=== PATIENT | female | born 1990 | race Caucasian/White ===

== ENCOUNTER 2018-04-22 17:54 | Outpatient (CLI) | payer OTHER ==
[~2018-04-22] VITALS: Ht 152.4 cm; Wt 81.0 kg
[2018-04-22 18:12] VITALS: Ht 152.4 cm; Wt 81.0 kg
[2018-04-22 18:14] VITALS: BP 125/74; PULSE 99; RESP 20
[2018-04-22] MEDS ORDERED: PREN1TAB13 PO (18:17)
--- NOTE | 2018-04-22 20:28 | PN ---
Triage Information Date/Time April 22, 2018 Reason for visit: Abd/pelvic pain (after a fall) Weeks of Gestation 38w 2d /Para 4/2 Diabetes: none Hypertention: none Additional information Pt slipped and did the splits in the bathroom last night at 0300, and is having some groin pain and lower abdominal pain today. Did not hit her belly and did not actually hit the floor. No bleeding or leaking or UC's. PMHx: none. PSHx: none. NKDA Objective Vital Signs Date Temp Pulse Resp B/P (MAP) Pulse Ox O2 O2 Flow FiO2 Time Delivery Rate 04/22/18 98.1 99 20 125/74 Room Air 18:14 (91) Heart Rate: 130's Heart Rate Comments Accels to 150 BPM. No decels. Contractions: None Exam Thick/1/posterior, per the RN Results/Medications Imaging Results BPP 8/8. TATA 9.7 cm. EFW 3117 grams. Disposition: Discharge Assessment/Plan A: IUP at 38w 2d. Lower abdominal pain. False labor. P: D/C home. F/u with her doctor on 04/29, as scheduled. Labor precautions reviewed. JANINE BOBO MD Apr 22, 2018 20:28
== END 2018-04-22 20:27 | disposition home or self-care (01) ==
LOC: L-D 17:54 → OBT 17:54
PROVIDERS: ATTEND Obstetrics & Gynecology
DX: O26.893 Other specified pregnancy related conditions, third trimester (principal); Z3A.38 38 weeks gestation of pregnancy; R10.2 Pelvic and perineal pain
CPT/HCPCS: 76815; 76818; Z7500; G0463

== ENCOUNTER 2018-04-26 10:42 | Inpatient (IN) | payer OTHER ==
[~2018-04-26 10:42] MED LIST: PREN1TAB13 PO
[2018-04-26] MEDS ORDERED: BUTORPHANOL 2 MG INJ IV PRN (12:00)
[2018-04-26] MEDS ORDERED: OXYTOCIN 30 UNITS/LR 500 ML IV PRN ×2 (12:00→21:30)
[2018-04-26] MEDS ORDERED: OXYTOCIN 30 UNITS/LR 500 ML IV SCH ×4 (12:00→21:03)
[2018-04-26] MEDS ORDERED: CARBOPROST 250 MCG INJ IM PRN ×2 (12:00→21:30)
[2018-04-26] MEDS ORDERED: LIDOCAINE 1% (MPF) 30 ML INJ INJ PRN (12:00)
[2018-04-26] MEDS ORDERED: BUTORPHANOL 1 MG INJ IV PRN (12:00)
[2018-04-26] MEDS ORDERED: MISOPROSTOL 200 MCG TAB PR PRN ×2 (12:00→21:30)
[2018-04-26] MEDS ORDERED: METHYLERGONOVINE 0.2 MG INJ IM PRN ×2 (12:00→21:30)
--- NOTE | 2018-04-26 13:36 | PREAC ---
Date/Time of Note Date/Time of Note DATE: 04/26/18 TIME: 13:34 Anesthesia Eval and Record Evaluation Time Pre-Procedure Interview DATE: 04/26/18 TIME: 13:34 Age 28 Sex female NPO: 8 hrs Preoperative diagnosis IUP Planned procedure L&D Epidural Past Medical History Past Medical History: Includes Surgery & Anesthesia Issues No known issue Meds Anticoagulation: No Beta Natalie within 24 hr: No Reason Beta Natalie not given: Pt. not on B-Natalie Reported Medications Pnv95/Ferrous Fumarate/FA ( Vitamins Tablet) 1 Each Tablet, 1 EACH PO, TAB 04/22/18 Current Medications Lactated Ringer's 1,000 ml @ 125 mls/hr Q8H IV ; Start 04/26/18 at 11:42 Butorphanol Tartrate (Stadol) 1 mg Q2H PRN IV .PAIN; Start 04/26/18 at 12:00 Butorphanol Tartrate (Stadol) 2 mg Q2H PRN IV .PAIN; Start 04/26/18 at 12:00 Lidocaine (Xylocaine 1% (Mpf)) 30 ml ONCE PRN INJ .EPISIOTOMY; Start 04/26/18 at 12:00 Oxytocin/Lactated Ringer's 500 ml @ 500 mls/hr ONCE POST IV ; Start 04/26/18 at 12:00 Oxytocin/Lactated Ringer's 500 ml @ 125 mls/hr POST IV ; Start 04/26/18 at 12:00 Oxytocin/Lactated Ringer's 500 ml @ 0 mls/hr ONCE PRN IV .VAGINAL BLEEDING; Start 04/26/18 at 12:00 Methylergonovine Maleate (Methergine) 0.2 mg ONCE PRN IM .VAGINAL BLEEDING; Start 04/26/18 at 12:00 Carboprost Tromethamine (Hemabate) 250 mcg ONCE PRN IM .VAGINAL BLEEDING; Start 04/26/18 at 12:00 Misoprostol (Cytotec) 1,000 mcg ONCE PRN VA .VAGINAL BLEEDING; Start 04/26/18 at 12:00 Meds reviewed: Yes Allergies Coded Allergies: No Known Allergy (Unverified , 04/22/18) Allergies Reviewed: Yes Labs/Studies Labs Reviewed: Reviewed by anesthesiologist test: Positive Pre-procedure Exam Last vitals BP:112/56, P:78, Spo2:100%, T:98,8 Airway: Adequate mouth opening, Adequate thyromental dist Mallampati: Mallampati II Teeth: Normal Lung: Normal Heart: Normal ASA Physical Status ASA physical status: 2 Emergency: None Planned Anesthetic Neuraxial: Epidural Planned Pain Management Epidural Pre-operative Attestations Prior to commencing anesthesia and surgery, the patient was re-evaluated, there was verification of: *The patient's identity *The results of appropriate recent lab work and preoperative vital signs *The above evaluation not changing prior to induction *Anesthetic plan, risk benefits, alternative and complications discussed with patient/family; questions answered; patient/family understands, accepts and wishes to proceed. EMIR PARIKH MD Apr 26, 2018 13:36
[2018-04-26] MEDS: LACTATED RINGER'S 1,000 ML IV SCH ×3 (13:48→20:37)
[2018-04-26] MEDS ORDERED: ONDANSETRON 4 MG INJ IV PRN ×2 (14:00→21:30)
[2018-04-26] MEDS ORDERED: FENTAnyl 2MCG/ML-ROPIV 0.2% 100 ML BAG EPI SCH ×2 (14:00)
[2018-04-26] MEDS ORDERED: DIPHENHYDRAMINE 50 MG INJ IV PRN (14:00)
[2018-04-26] MEDS ORDERED: NALOXONE (0.4 MG/ML) INJ IV PRN (14:00)
[2018-04-26] MEDS ORDERED: ROPIVACAINE 0.2% 100 ML ONE (14:05)
--- NOTE | 2018-04-26 21:02 | OPPN ---
Date/Time of Note Date/Time of Note DATE: 04/26/18 TIME: 21:01 Operative Report Planned Procedure Procedure date Apr 26, 2018 Procedure(s) Performed by see signature line Management Advisor: A 2nd Management Advisor none Pre-procedure diagnosis 39 WEEKS IUP IN LABOR [id number] Anesthesia Type: [id number] epidural Post-Procedure Post-procedure diagnosis 39 WEEKS IUP Findings Live Baby GIRL, Apgars 9and 9, weight6;BS 14 OZ Estimated Blood Loss: 200 - 300 mls Specimen(s) none Grafts/Implant(s) none Complication(s) none RUBÉN GONCALVES MD Apr 26, 2018 21:01
[2018-04-26] MEDS: LACTATED RINGER'S 1,000 ML IV* SCH (21:03)
[2018-04-26] MEDS ORDERED: HYDROCODONE/APAP (5/325) TAB PO PRN ×2 (21:30)
[2018-04-26] MEDS ORDERED: METHYLERGONOVINE 0.2 MG TAB PO PRN (21:30)
[2018-04-26] MEDS ORDERED: MAGNESIUM HYDROXIDE 30ML CUP PO PRN (21:30)
[2018-04-26] MEDS ORDERED: WITCH HAZEL/GLYCERIN PAD PR PRN (21:30)
[2018-04-26] MEDS ORDERED: DIPHENHYDRAMINE 25 MG CAP PO PRN (21:30)
[2018-04-26] MEDS ORDERED: LANOLIN HPA 1 PKT TOP PRN (21:30)
[2018-04-26] MEDS ORDERED: ZOLPIDEM 5 MG TAB PO PRN (21:30)
[2018-04-26] MEDS ORDERED: NA PHOSPHATE/BIPHOS 133 ML ENEMA PR PRN (21:30)
[2018-04-26] MEDS ORDERED: BENZOCAINE 20% 56 ML SPRAY TOP PRN (21:30)
[2018-04-26 22:00] VITALS: BP 125/77; RESP 19
[2018-04-26] MEDS: IBUPROFEN 600 MG TAB PO PRN (22:53)
[2018-04-27 04:00] VITALS: BP 102/47; RESP 17
[2018-04-27] MEDS: LACTATED RINGER'S 1,000 ML IV* SCH (05:03)
[2018-04-27 07:45] VITALS: BP 109/72; PULSE 97; RESP 18
[2018-04-27] MEDS: IBUPROFEN 600 MG TAB PO PRN ×2 (09:22→19:28)
[2018-04-27] MEDS: SENNA/DOCUSATE NA (8.6MG/50MG) TAB PO SCH ×2 (09:22→23:06)
[2018-04-27] MEDS ORDERED: CEPASTAT LOZENGE MT PRN (13:00)
[2018-04-27 16:00] VITALS: BP 104/66; PULSE 88; RESP 18
[2018-04-27 20:00] VITALS: BP 123/83; PULSE 111; RESP 20
--- NOTE | 2018-04-27 21:20 | PN ---
Date/Time of Note Date/Time of Note DATE: 04/27/18 TIME: 21:18 Assessment/Plan VTE Prophylaxis Risk score (from Ns)>0 risk: 1 SCD applied (from Ns): No SCD contraindicated: low risk/ambulating Pharmacological prophylaxis: NA/contraindicated Pharm contraindication: low risk/ambulating Lines/Catheters IV C[facility]ter Type [facility]from [facility] Peripheral IV Assessment/Plan Assessment/Plan POST DAY 1 HOME TOMORROW RETURN TO CLINIC IN 2 WEEKS CONTINUE WITH VITAMINS OD AND FERROUS SULFATE PO TID DIET ADVISED COUNSELED INSTRUCTED CALL OFFICE IF THERE IS ANY PROBLEMS OR CONCERN Result Diagram: 04/27/1825 Results 24hrs Laboratory Tests Test 04/27/18 06:41 04/27/18 07:25 Lab Scanned Report REFERENCE LAB White Blood Count 12.3 #H Red Blood Count 4.13 L Hemoglobin 11.8 L Hematocrit 36.0 L Mean Corpuscular Volume 87.2 Mean Corpuscular Hemoglobin 28.6 L Mean Corpuscular Hemoglobin Concent 32.8 Red Cell Distribution Width 14.4 Platelet Count 176 Mean Platelet Volume 10.7 H Immature Granulocytes % 0.600 H Neutrophils % 64.1 Lymphocytes % 26.8 Monocytes % 6.3 Eosinophils % 2.0 Basophils % 0.2 Nucleated Red Blood Cells % 0.0 Immature Granulocytes # 0.080 H Neutrophils # 7.9 H Lymphocytes # 3.3 H Monocytes # 0.8 Eosinophils # 0.3 Basophils # 0.0 Nucleated Red Blood Cells # 0.0 Subjective 24 Hr Interval Summary Free Text/Dictation FEELS GOOD, GOOD URINE OUTPUT, GOOD BOWEL MOVEMENT Exam/Review of Systems Exam Vitals Vital Signs Date Temp Pulse Resp B/P (MAP) Pulse Ox O2 O2 Flow FiO2 Time Delivery Rate 04/27/18 98.6 88 18 104/66 Room Air 16:00 (79) Intake and Output 04/26/18 04/26/18 04/27/18 1515:00 23:00 07:00 IntakeIntake Total 1000 ml 1500 ml OutputOutput Total 1597 ml 400 ml BalanceBalance 1000 ml -97 ml -400 ml Exam VITAL SIGNS STABLE: YES AFEBRILE: YES BREAST NOT ENGORGED, NON-TENDER, NO APPRECIABLE MASS: YES LUNGS CLEAR, NO RALES, WHEEZES, RHONCHI: YES SINUS RHYTHM WITHOUT MURMUR: YES ABDOMEN: NON-TENDER FUNDUS: BELOW UMBILICUS BOWEL SOUNDS: PRESENT UTERUS: FIRM INTACT PERINEUM: YES LOCHIA: LIGHT DEEP TENDON REFLEXES: 0 EXTREMITIES: NO CALF TENDERNESS EDEMA SCALE: NONE Results Results 24hrs Laboratory Tests Test 04/27/18 06:41 04/27/18 07:25 Lab Scanned Report REFERENCE LAB White Blood Count 12.3 #H Red Blood Count 4.13 L Hemoglobin 11.8 L Hematocrit 36.0 L Mean Corpuscular Volume 87.2 Mean Corpuscular Hemoglobin 28.6 L Mean Corpuscular Hemoglobin Concent 32.8 Red Cell Distribution Width 14.4 Platelet Count 176 Mean Platelet Volume 10.7 H Immature Granulocytes % 0.600 H Neutrophils % 64.1 Lymphocytes % 26.8 Monocytes % 6.3 Eosinophils % 2.0 Basophils % 0.2 Nucleated Red Blood Cells % 0.0 Immature Granulocytes # 0.080 H Neutrophils # 7.9 H Lymphocytes # 3.3 H Monocytes # 0.8 Eosinophils # 0.3 Basophils # 0.0 Nucleated Red Blood Cells # 0.0 Medications Medication Current Medications Butorphanol Tartrate (Stadol) 1 mg Q2H PRN IV .PAIN; Start 04/26/18 at 12:00 Butorphanol Tartrate (Stadol) 2 mg Q2H PRN IV .PAIN; Start 04/26/18 at 12:00 Lidocaine (Xylocaine 1% (Mpf)) 30 ml ONCE PRN INJ .EPISIOTOMY; Start 04/26/18 at 12:00 Oxytocin/Lactated Ringer's 500 ml @ 500 mls/hr ONCE POST IV ; Start 04/26/18 at 12:00 Oxytocin/Lactated Ringer's 500 ml @ 125 mls/hr POST IV Last administered on 04/26/18at 21:16; Admin Dose 125 MLS/HR; Start 04/26/18 at 12:00 Oxytocin/Lactated Ringer's 500 ml @ 0 mls/hr ONCE PRN IV .VAGINAL BLEEDING; Start 04/26/18 at 12:00 Methylergonovine Maleate (Methergine) 0.2 mg ONCE PRN IM .VAGINAL BLEEDING; Start 04/26/18 at 12:00 Carboprost Tromethamine (Hemabate) 250 mcg ONCE PRN IM .VAGINAL BLEEDING; Start 04/26/18 at 12:00 Misoprostol (Cytotec) 1,000 mcg ONCE PRN ND .VAGINAL BLEEDING; Start 04/26/18 at 12:00 Fentanyl/ Ropivacaine 100 ml EPIDURAL INFUSION EPI ; Start 04/26/18 at 14:00 Oxytocin/Lactated Ringer's 500 ml @ 0 mls/hr FOR AUGMENTATION IV Last administered on 04/26/18at 16:26; Admin Dose 0 MLS/HR; Start 04/26/18 at 16:00 Methylergonovine Maleate (Methergine) 0.2 mg Q6H PRN PO .VAGINAL BLEED; Start 04/26/18 at 21:30 Ibuprofen (Motrin) 600 mg Q6H PRN PO MILD PAIN LEVEL 1-3 Last administered on 04/27/18at 19:28; Admin Dose 600 MG; Start 04/26/18 at 21:30 Acetaminophen/ Hydrocodone Bitart (Satartia (5/325)) 1 tab Q4H PRN PO MODERATE PAIN LEVEL 4-6; Start 04/26/18 at 21:30 Acetaminophen/ Hydrocodone Bitart (Satartia (5/325)) 2 tab Q4H PRN PO SEVERE PAIN LEVEL 7-10; Start 04/26/18 at 21:30 Ondansetron HCl (Zofran Inj) 4 mg Q6H PRN IV NAUSEA/VOMITING; Start 04/26/18 at 21:30 Diphenhydramine HCl (Benadryl) 25 mg Q6H PRN PO .PRUTITUS; Start 04/26/18 at 21:30 Zolpidem Tartrate (Ambien) 5 mg QHS PRN PO .INSOMNIA; Start 04/26/18 at 21:30 Senna/Docusate Sodium (Senokot-S) 1 tab BID PO Last administered on 04/27/18at 09:22; Admin Dose 1 TAB; Start 04/27/18 at 09:00 Magnesium Hydroxide (Milk Of Mag) 30 ml Q12H PRN PO .CONSTIPATION; Start 04/26/18 at 21:30 Sodium Biphosphate/ Sodium Phosphate (Fleet Enema) 133 ml DAILY PRN ND .CONSTIPATION; Start 04/26/18 at 21:30 Witch Mónica/ Glycerin (Tucks Pads) 1 pad BEDSIDE MEDICATION PRN ND .HEMORRHOID/EPISIOTOMY PAIN Last administered on 04/26/18at 22:53; Admin Dose 40 PAD; Start 04/26/18 at 21:30 Benzocaine (Dermoplast [place]) 1 spray BEDSIDE MEDICATION PRN TOP .HEMMORHOID/EPISIOTOMY PAIN Last administered on 04/26/18 22:53; Admin Dose 56 SPRAY; Start 04/26/18 at 21:30 Lanolin (Lanolin Hpa) 1 applic BEDSIDE MEDICATION PRN TOP .NIPPLES Last administered on 04/26/18 22:53; Admin Dose 1 APPLIC; Start 04/26/18 at 21:30 Measles/Mumps/ Rubella Vaccine Live (Mmr Ii Vaccine) 0.5 ml ONCE ONCE SC* ; Start 04/28/18 at 09:00; Stop 04/28/18 at 09:01 Diphtheria/ Tetanus/Acell Pertussis (Adacel) 0.5 ml ONCE ONCE IM* ; Start 04/28/18 at 09:00; Stop 04/28/18 at 09:01 Varicella Virus Vaccine Live (Varivax Vaccine With Diluent) 1,350 unit ONCE ONCE SC* ; Start 04/28/18 at 09:00; Stop 04/28/18 at 09:01 Oxytocin/Lactated Ringer's 500 ml @ 0 mls/hr ONCE PRN IV .VAGINAL BLEEDING; Start 04/26/18 at 21:30 Methylergonovine Maleate (Methergine) 0.2 mg ONCE PRN IM .VAGINAL BLEEDING; Start 04/26/18 at 21:30 Carboprost Tromethamine (Hemabate) 250 mcg ONCE PRN IM .VAGINAL BLEEDING; Start 04/26/18 at 21:30 Misoprostol (Cytotec) 1,000 mcg ONCE PRN ND .VAGINAL BLEEDING; Start 04/26/18 at 21:30 Phenol (Cepastat Lozenge) 1 lozenge Q6 PRN MT SORE THROAT Last administered on 04/27/18 14:55; Admin Dose 1 LOZENGE; Start 04/27/18 at 13:00 RUBÉN GONCALVES MD Apr 27, 2018 21:20
[2018-04-28 04:00] VITALS: BP 112/58; PULSE 80; RESP 16
[2018-04-28] MEDS: IBUPROFEN 600 MG TAB PO PRN (07:24)
[2018-04-28 08:00] VITALS: BP 111/58; PULSE 88; RESP 18
[2018-04-28] MEDS ORDERED: DIPHTH/TET/ACEL PERTUSS (ADULT) 0.5 ML VIAL IM* ONE (09:00)
[2018-04-28] MEDS ORDERED: MEASLES,MUMPS,RUBELLA VACCINE INJ SC* ONE (09:00)
[2018-04-28] MEDS ORDERED: VARICELLA VACCINE LIVE/PF 1,350 UNIT/0.5 ML ML SC* ONE (09:00)
[2018-04-28] MEDS: SENNA/DOCUSATE NA (8.6MG/50MG) TAB PO SCH (10:38)
--- NOTE | 2018-04-28 13:11 | PAC ---
Date/Time of Note Date/Time of Note DATE: 04/28/18 TIME: 13:10 Post-Anesthesia Notes Post-Anesthesia Note Last documented vital signs Vital Signs Date Temp Pulse Resp B/P (MAP) Pulse Ox O2 O2 Flow FiO2 Time Delivery Rate 04/28/18 98.6 88 18 111/58 Room Air 08:00 (75) Activity: WNL Respiratory function: WNL Cardiovascular function: WNL Mental status: Baseline Pain reasonably controlled: Yes Hydration appropriate: Yes Nausea/Vomiting absent: Yes Comments BP:105/56, P:78, Spo2:100%, T:98,8 EMIR PARIKH MD Apr 28, 2018 13:11
--- NOTE | 2018-04-30 07:44 | PREOPHP ---
DATE OF ADMISSION: 04/26/2018 HISTORY OF PRESENT ILLNESS: This is a 28-year-old lady, 4, para 2 with 1 spontaneous abortio n. Her EDC 05/02/2018 at 39-1/7 weeks, admitted to labor and delivery area in labor. She had prenat al care in my [place] office and the care was uneventful. She started to have contractions about a few hours prior to admission. PAST PERSONAL HISTORY: No history of diabetes, TB, asthma. ALLERGIES: No allergies. SOCIAL HISTORY: Patient does not smoke. She does not drink. MEDICATIONS: She does not take any drugs except her iron and vitamins. GYNECOLOGIC HISTORY: She had menarche at the age of 12, every 28 days interval, 3 to 4 days duration , and moderate in amount. FAMILY HISTORY: Parents have diabetes and hypertension. She is 4, para 2 with 2 normal deli veries. REVIEW OF SYSTEMS: CARDIOVASCULAR: No chest pains. RESPIRATORY: No cough. GASTROINTESTINAL: No diarrhea, no vomiting. GENITOURINARY: No dysuria. PHYSICAL EXAMINATION: GENERAL: Reveals a conscious, coherent lady and in no acute distress. VITAL SIGNS: Her blood pressure 120/80, pulse rate 80 per minute, respirations 16 per minute. BREASTS, HEART AND LUNGS: Within normal limits. ABDOMEN: Soft, term size uterus, with fundic height 36 cm. heart tones 140 per minute. PELVIC: On admission revealed the cervix to be 2 cm dilated, 100% effaced, station -2 in cephalic pr esentation with the bag of water intact. EXTREMITIES: No pedal edema. ADMITTING DIAGNOSIS: A 39-1/7 weeks intrauterine in labor. The patient was observed for p rogress of labor. She was having good contractions, so she has asked for labor epidural and she was observed. Then, she spontaneously ruptured the bag at 7:50 p.m. when she was 4 cm dilated. She was ordered to have Pitocin augmentation and she progressed well. Dictated By: RUBÉN GONCALVES MD NS/NTS Conf#: [id number] DID#: [id number] CC: RUBÉN GONCALVES MD;*EndCC*
--- NOTE | 2018-04-30 07:49 | OPR ---
DATE OF OPERATION: 04/26/2018 OPERATION PERFORMED: This is a 28-year-old lady, 4, para 2. The EDC 05/02/2018 at 39-1/7 we eks, admitted in labor. HISTORY OF PRESENT ILLNESS: See dictated history and physical. PHYSICAL EXAMINATION: See dictated history and physical. ADMITTING DIAGNOSIS: 39-1/7 week's intrauterine in labor. PROGRESS OF LABOR: See dictated history and physical. Patient received labor epidural. She was given Pitocin augmentation and she progressed well. She holly d a normal spontaneous vaginal delivery on 04/26/2018, seen at 2050 hours. Apgars 9 and 9, deliverin g a healthy baby girl over intact perineum, weighing 6 pounds 14 ounces, 3110 grams. The patient fiona erated the delivery well. The cervix, vagina, and vulva were free of hematoma. The position was dir ect occiput anterior. There were 3 vessels in the cord. The placenta was normal with a small shiny side and a pinkish maternal side. Patient tolerated the delivery well. Estimated blood loss a bout 300 mL. Vital signs were stable during and after the procedure. Dictated By: RUBÉN GONCALVES MD NS/NTS Conf#: [id number] DID#: [id number] CC: RUBÉN GONCALVES MD;*EndCC*
== END 2018-04-28 16:30 | disposition home or self-care (01) | DRG 807 ==
LOC: OBT 10:42 → L-D 10:43 → OBT 11:40 → L-D 11:40 → PP1 21:59
PROVIDERS: ADMIT Obstetrics & Gynecology; ATTEND Obstetrics & Gynecology
PROC: 10E0XZZ Delivery of Products of Conception, External Approach (ICD-10-PCS; principal; 2018-04-26)
DX: O80 Encounter for full-term uncomplicated delivery (principal); Z37.0 Single live birth; Z3A.39 39 weeks gestation of pregnancy
CPT/HCPCS: 62319; 76815; 85025; 85610; 85730; 86592; 86850; 86900; 86901; 90716; G0463; J2590; J2795; J7120